=== PATIENT | male | born 1965 | race Caucasian/White ===

== ENCOUNTER → 2016-11-14 | Outpatient (CLI) | payer OTHER ==
[~2016-11-14] MED LIST: ASPI81TA28 PO; BUPR-83 PO; ELQ25 PO; GADAVIST IV PRN; MTR/600 PO; RIVA1TAB4 PO
--- NOTE | 2016-11-14 13:16 | DIAGNOSTIC IMAGING REPORT ---
MRI OF THE BRAIN WITHOUT AND WITH IV CONTRAST CLINICAL HISTORY: Severe persistent headaches. Left auricular pain COMPARISON STUDY: Head CT dated 08/19/2016 TECHNIQUE: MRI of the brain was performed from the vertex to the skull base utilizing various T1 and T2 weighted sequences. Following the IV administration of 8 mL of Gadavist contrast, additional enhanced images were obtained. FINDINGS: Sagittal T1, axial diffusion, proton density and T2 weighted axial, coronal FLAIR, and pre and post axial T1-weighted images were acquired. These were supplemented with post gadolinium coronal T1 weighted images. No intra or extra-axial mass lesions are visualized. Axial diffusion-weighted images reveal no evidence of acute or subacute infarction. There is no evidence of ventricular dilatation. Proton density T2-weighted and FLAIR images reveal no significant intraparenchymal signal abnormalities. There are no abnormal flow voids. There is a small right frontoparietal developmental venous anomaly IMPRESSION: 1. No acute intracranial findings 2. No evidence of intracranial mass 3. No evidence of acute or subacute infarction 4. Small right frontoparietal developmental venous anomaly Electronically signed by: Vincenzo Hernandez M.D. 11/14/2016 1:14 PM Dictated Date/Time: 11/14/2016 1:08 PM
== END | disposition home or self-care (01) ==
LOC: C.MRIBC 11:58
PROVIDERS: ATTEND Psychiatry & Neurology Neurology
DX: R51 Headache (principal); H92.02 Otalgia, left ear

== ENCOUNTER 2017-03-17 19:07 | Emergency (ER) | payer OTHER ==
[~2017-03-17] VITALS: Ht 177.8 cm; Wt 78.6 kg
[~2017-03-17 19:07] MED LIST changes: -BUPR-83 PO; -ELQ25 PO; -GADAVIST IV PRN; -MTR/600 PO; -RIVA1TAB4 PO
[2017-03-17 19:14] VITALS: TEMP 36.5; Ht 177.8 cm; Wt 78.6 kg
[2017-03-17] MEDS ORDERED: ELQ25 PO (19:23)
[2017-03-17 20:08] LABS: BASO % 0.9 %; BASO ABS # 0.05 K/uL (0-0.2); COMPLETE YES; HEMATOCRIT 42.2 % (42-52); IG% 0.2 %; LYMPH % 32.6 %; LYMPH ABS # 1.78 K/uL (1.2-3.4); MEAN CORPUSCULAR HEMOGLOBIN 34.7 pg (25-34); MEAN CORPUSCULAR HGB CONC 34.4 g/dl (32-36); MEAN PLATELET VOLUME 9.2 fL (7.4-10.4); MONO % 8.6 %; NEUT % 55.7 %; PLATELET COUNT 206 K/uL (130-400); RED BLOOD COUNT 4.18 M/uL (4.7-6.1); WHITE BLOOD COUNT 5.46 K/uL (4.8-10.8)
[2017-03-17] MEDS ORDERED: MTR/600 PO (20:12)
[2017-03-17 20:28] LABS: BUN/CREATININE RATIO 6.4 (10-20); CALCIUM 8.1 mg/dl (8.5-10.1); CREATININE 0.73 mg/dl (0.60-1.40); POTASSIUM 3.8 mmol/L (3.5-5.1)
[2017-03-17 20:29] LABS: BENZODIAZEPINE, URINE POS (NEG); COCAINE,URINE NEG (NEG); PHENCYCLIDINE, URINE NEG (NEG)
[2017-03-17 20:30] LABS: ALB/GLOB RATIO 1.2 (0.9-2)
--- NOTE | 2017-03-17 20:42 | DIAGNOSTIC IMAGING REPORT ---
CHEST 2 VIEWS ROUTINE CLINICAL HISTORY: cough, congestion ATYPICAL CHEST PAIN COMPARISON STUDY: 03/21/2016 FINDINGS: The cardiac and mediastinal contours are normal. There is no evidence of focal pulmonary consolidation. There is no evidence of failure. No pleural effusions are visualized.[ IMPRESSION: No active disease in the chest. Electronically signed by: Vincenzo Hernandez M.D. 03/17/2017 8:40 PM Dictated Date/Time: 03/17/2017 8:40 PM
--- NOTE | 2017-03-17 22:30 | EMERGENCY ROOM VISIT NOTE ---
History First contact with patient: 19:17 Chief Complaint: ILLNESS Stated Complaint: THROAT,CHEST PAIN,COUGH History of Present Illness The patient is a 52 year old male who presents to the Emergency Room with complaints of cough and congestion for the past 2 weeks. The patient states that he has had nasal congestion, sore throat and cough on and off for the past 2 weeks. The patient took leftover penicillin at home. The patient does report that he has several beers daily. He reports he has detoxed himself off of Suboxone, but replaced that with alcohol. He is thinking about quitting. He did see his family doctor regarding these issues. He states he has a prescription for Librium that he occasionally takes at home. The patient denies chest pain, abdominal pain, fever, nausea or vomiting. Review of Systems A complete 10 point review of systems was reviewed with the patient with pertinent positives and negatives as per history of present illness. All else were negative. Past Medical/Surgical History Medical Problems: (1) ANXIETY STATE NOS (2) BIPOLAR DISORDER, UNSPECIFIED (3) DVT (deep venous thrombosis) (4) OPIOID DEPENDENCE-UNSPEC (5) Pancreatitis (6) Pulmonary embolism Social History Smoking Status: Never Smoker Alcohol Use: occasionally Drug Use: none Marital Status: Housing Status: lives with family Occupation Status: employed Current/Historical Medications Scheduled Apixaban (Eliquis), 2.5 MG PO BID Scheduled PRN Ibuprofen (Ibuprofen), 600 MG PO Q6 PRN for Pain Allergies Coded Allergies: No Known Allergies (Verified , 03/17/17) Physical Exam Vital Signs Date Time Temp Pulse Resp B/P (MAP) Pulse Ox O2 Delivery O2 Flow Rate FiO2 03/17/17 22:42 61 18 145/82 96 03/17/17 21:35 61 18 152/80 96 Room Air 03/17/17 19:14 36.5 75 18 122/75 95 Room Air Physical Exam VITALS: Vitals are noted on the nurse's note and reviewed by myself. Vital signs stable. GENERAL: This is a 52-year-old female, in no acute distress, breath smells of EtOH, nondiaphoretic, well-developed well-nourished. SKIN: The skin was without rashes. EARS: External auditory canals clear, there is scarring of bilateral tympanic membranes with no erythema or effusion. EYES: Pupils equal round and reactive to light and accommodation. Conjunctivae without injection, sclerae without icterus. NOSE: Patent, turbinates without inflammation or discharge. No sinus tenderness. MOUTH: Mucous membranes moist. Tonsils are not enlarged. Pharynx without erythema or exudate. NECK: Supple without nuchal rigidity. No lymphadenopathy. HEART: Regular rate and rhythm without murmurs gallops or rubs. LUNGS: Clear to auscultation bilaterally without wheezes, rales or rhonchi. NEURO: Patient was alert and oriented to person place and time. Medical Decision & Procedures ER Provider Diagnostic Interpretation: CHEST 2 VIEWS ROUTINE CLINICAL HISTORY: cough, congestion ATYPICAL CHEST PAIN COMPARISON STUDY: 03/21/2016 FINDINGS: The cardiac and mediastinal contours are normal. There is no evidence of focal pulmonary consolidation. There is no evidence of failure. No pleural effusions are visualized.[ IMPRESSION: No active disease in the chest. Laboratory Results 03/17/17 20:00 Red Blood Count 4.18, Mean Corpuscular Volume 101.0, Mean Corpuscular Hemoglobin 34.7, Mean Corpuscular Hemoglobin Concent 34.4, Mean Platelet Volume 9.2, Neutrophils (%) (Auto) 55.7, Lymphocytes (%) (Auto) 32.6, Monocytes (%) ( Auto) 8.6, Eosinophils (%) (Auto) 2.0, Basophils (%) (Auto) 0.9, Neutrophils # ( Auto) 3.04, Lymphocytes # (Auto) 1.78, Monocytes # (Auto) 0.47, Eosinophils # ( Auto) 0.11, Basophils # (Auto) 0.05 03/17/17 20:00 Test 03/17/17 19:55 03/17/17 20:00 Urine Opiates Screen NEG (NEG) Urine Methadone, Qualitative NEG (NEG) Urine Barbiturates NEG (NEG) Urine Phencyclidine (PCP) Level NEG (NEG) Ur Amphetamine/Methamphetamine NEG (NEG) MDMA (Ecstasy) Screen NEG (NEG) Urine Benzodiazepines Screen POS (NEG) Urine Cocaine Metabolite NEG (NEG) Urine Marijuana (THC) POS (NEG) White Blood Count 5.46 K/uL (4.8-10.8) Red Blood Count 4.18 M/uL (4.7-6.1) Hemoglobin 14.5 g/dL (14.0-18.0) Hematocrit 42.2 % (42-52) Mean Corpuscular Volume 101.0 fL (80-100) Mean Corpuscular Hemoglobin 34.7 pg (25-34) Mean Corpuscular Hemoglobin Concent 34.4 g/dl (32-36) Platelet Count 206 K/uL (130-400) Mean Platelet Volume 9.2 fL (7.4-10.4) Neutrophils (%) (Auto) 55.7 % Lymphocytes (%) (Auto) 32.6 % Monocytes (%) (Auto) 8.6 % Eosinophils (%) (Auto) 2.0 % Basophils (%) (Auto) 0.9 % Neutrophils # (Auto) 3.04 K/uL (1.4-6.5) Lymphocytes # (Auto) 1.78 K/uL (1.2-3.4) Monocytes # (Auto) 0.47 K/uL (0.11-0.59) Eosinophils # (Auto) 0.11 K/uL (0-0.5) Basophils # (Auto) 0.05 K/uL (0-0.2) RDW Standard Deviation 47.6 fL (36.4-46.3) RDW Coefficient of Variation 12.9 % (11.5-14.5) Immature Granulocyte % (Auto) 0.2 % Immature Granulocyte # (Auto) 0.01 K/uL (0.00-0.02) Anion Gap 11.0 mmol/L (3-11) Est Creatinine Clear Calc Drug Dose 119.4 ml/min Estimated GFR () 121.9 Estimated GFR (Non- 105.2 BUN/Creatinine Ratio 6.4 (10-20) Calcium Level 8.1 mg/dl (8.5-10.1) Total Bilirubin 0.3 mg/dl (0.2-1) Aspartate Amino Transf (AST/SGOT) 100 U/L (15-37) Alanine Aminotransferase (ALT/SGPT) 104 U/L (12-78) Alkaline Phosphatase 63 U/L (45-117) Total Protein 6.4 gm/dl (6.4-8.2) Albumin 3.5 gm/dl (3.4-5.0) Globulin 2.9 gm/dl (2.5-4.0) Albumin/Globulin Ratio 1.2 (0.9-2) Ethyl Alcohol mg/dL 52.0 mg/dl (0-3) Medical Decision Differential diagnosis includes pneumonia, upper respiratory infection, allergies, COPD, asthma, among others. The patient is a 52-year-old male who presents today complaining of cough and nasal congestion. Labs revealed no leukocytosis, anemia or concerning electrolyte abnormalities. LFTs are mildly elevated consistent with the patient 's alcohol use. Tox screen was positive for benzodiazepines and marijuana. Alcohol was found to be 52. The patient may have an upper respiratory infection or seasonal allergies. He did request information regarding rehabilitation. The case supervisor did speak with the patient prior to discharge. He was encouraged to follow-up closely with his primary care provider. Based on the patient's presentation and work up, I feel the patient is stable for outpatient treatment. The patient was educated to return to the emergency department for any worsening of their current condition or new/concerning symptoms. He will follow up with his PCP. Medication reconciliation: I attest that I have personally reviewed the patient 's current medication list. Blood pressure screening: Patient was found to have an elevated blood pressure and was referred to their primary care provider for recheck and further treatment. Impression Primary Impression: Upper respiratory infection Departure Information Dispostion Home / Self-Care Condition GOOD Referrals Gerber Raman PA-C (PCP) Patient Instructions My [facility] Additional Instructions Sudafed at home as needed for symptoms. For pain control, you can use the following [id number] medicines (if >12 yo): - Regular strength (325mg/tab) Tylenol (acetaminophen) 2 tabs every 4-6 hours as needed. Do not exceed 12 tablets in a 24 hour period. Avoid taking more than 4 grams (4000 mg) of Tylenol per day. This includes any other sources of acetaminophen you may take on a regular basis. - Regular strength (200 mg/tab) Advil (ibuprofen) 1-2 tabs every 4-6 hours as needed. Do not exceed a dose of 3200 mg per day. Follow-up with your primary care provider this week for further evaluation.
[2017-03-17 22:42] VITALS: BP 145/82; PULSE 61; O2SAT 96
[2017-03-21 08:04] LABS: HYDROXYETHYLFLURAZEPAM CONF NEGATIVE NG/ML (CUTOFF=50); HYDROXYMIDAZOLAM NEGATIVE NG/ML (CUTOFF=50); HYDROXYTRIAZOLAM CONF NEGATIVE NG/ML (CUTOFF=50); TEMAZEPAM CONF NEGATIVE NG/ML (CUTOFF=50)
[2017-04-08] MEDS ORDERED: RIVA1TAB4 PO (08:11)
== END 2017-03-17 22:43 | disposition home or self-care (01) ==
LOC: C.EDB 19:08 → C.EDC 22:43
DX: J06.9 Acute upper respiratory infection, unspecified (principal); F41.9 Anxiety disorder, unspecified; F31.9 Bipolar disorder, unspecified; Z86.718 Personal history of other venous thrombosis and embolism; F11.20 Opioid dependence, uncomplicated; Z86.711 Personal history of pulmonary embolism; Z79.01 Long term (current) use of anticoagulants

== ENCOUNTER → 2017-05-06 | Outpatient (CLI) | payer OTHER ==
[~2017-05-06] MED LIST changes: -ASPI81TA28 PO; +MTR/600 PO; +RIVA1TAB4 PO
[2017-05-06 10:57] LABS: HEMATOCRIT 45.3 % (42-52); MEAN CELL VOLUME 102.7 fL (80-100); MEAN CORPUSCULAR HEMOGLOBIN 36.3 pg (25-34); MEAN CORPUSCULAR HGB CONC 35.3 g/dl (32-36); MEAN PLATELET VOLUME 9.8 fL (7.4-10.4); PLATELET COUNT 201 K/uL (130-400); RED BLOOD COUNT 4.41 M/uL (4.7-6.1); WHITE BLOOD COUNT 6.05 K/uL (4.8-10.8)
[2017-05-06 11:06] LABS: INR 1.1 (0.9-1.1)
[2017-05-06 11:11] LABS: ALT/SGPT 115 U/L (12-78); AST/SGOT 84 U/L (15-37); BLOOD UREA NITROGEN 5 mg/dl (7-18); BUN/CREATININE RATIO 6.9 (10-20); CALCIUM 8.7 mg/dl (8.5-10.1); CARBON DIOXIDE 25 mmol/L (21-32); CHLORIDE 108 mmol/L (98-107); CREATININE 0.72 mg/dl (0.60-1.40); GLUCOSE 85 mg/dl (70-99); SODIUM 139 mmol/L (136-145)
[2017-05-06 11:14] LABS: ALB/GLOB RATIO 1.5 (0.9-2); ALKALINE PHOSPHATASE 66 U/L (45-117)
== END | disposition home or self-care (01) ==
LOC: C.LAB 10:04
PROVIDERS: ATTEND Physician Assistant
DX: Z51.81 Encounter for therapeutic drug level monitoring (principal); Z79.01 Long term (current) use of anticoagulants; Z86.718 Personal history of other venous thrombosis and embolism

== ENCOUNTER 2017-11-30 18:02 | Emergency (ER) | payer OTHER ==
[~2017-11-30] VITALS: Ht 177.8 cm; Wt 81.6 kg
[2017-11-30 18:12] VITALS: BP 120/76; PULSE 73; TEMP 36.6; O2SAT 96; Ht 177.8 cm; Wt 81.6 kg
[2017-12-01] MEDS ORDERED: GABA-113 PO (05:53)
[2017-12-01] MEDS ORDERED: NAPR1TAB9 PO (05:53)
== END 2017-11-30 20:11 | disposition left against medical advice (07) ==
LOC: C.EDB 18:03 → C.EDA 20:11
DX: M79.606 Pain in leg, unspecified (principal)

== ENCOUNTER 2017-12-01 05:21 | Emergency (ER) | payer OTHER ==
[~2017-12-01] VITALS: Ht 177.8 cm; Wt 78.2 kg
[2017-12-01 05:28] VITALS: TEMP 36.3; Ht 177.8 cm; Wt 78.2 kg
[2017-12-01] MEDS ORDERED: GABA-113 PO (05:53)
[2017-12-01] MEDS ORDERED: NAPR1TAB9 PO (05:53)
[2017-12-01 06:11] LABS: BASO % 0.6 %; BASO ABS # 0.03 K/uL (0-0.2); HEMATOCRIT 44.5 % (42-52); HEMOGLOBIN 15.9 g/dL (14.0-18.0); LYMPH % 30.2 %; LYMPH ABS # 1.53 K/uL (1.2-3.4); MEAN CELL VOLUME 106.2 fL (80-100); MEAN CORPUSCULAR HEMOGLOBIN 37.9 pg (25-34); MEAN CORPUSCULAR HGB CONC 35.7 g/dl (32-36); MEAN PLATELET VOLUME 9.5 fL (7.4-10.4); MONO % 10.5 %; MONO ABS # 0.53 K/uL (0.11-0.59); NEUT % 56.7 %; NEUT ABS # 2.87 K/uL (1.4-6.5); PLATELET COUNT 184 K/uL (130-400); RED CELL DISTRIBUTION WIDTH CV 12.8 % (11.5-14.5); RED CELL DISTRIBUTION WIDTH SD 49.6 fL (36.4-46.3); WHITE BLOOD COUNT 5.06 K/uL (4.8-10.8)
[2017-12-01 06:43] LABS: ALBUMIN 4.1 gm/dl (3.4-5.0); CALCIUM 8.5 mg/dl (8.5-10.1); CREATININE 0.77 mg/dl (0.60-1.40); POTASSIUM 3.9 mmol/L (3.5-5.1)
--- NOTE | 2017-12-01 06:44 | DIAGNOSTIC IMAGING REPORT ---
R VENOUS DOPP LOWER EXT UNILAT HISTORY: 52 years-old Male pain, hx PE acute right lower chest pain with history of DVT COMPARISON: None available TECHNIQUE: Multiple real-time sonographic images of the right lower extremity deep venous structures were obtained assessing grayscale appearance, color and spectral flow FINDINGS: There is normal flow, compression, phasicity and augmentation of the right lower extremity deep venous structures. IMPRESSION: No sonographic evidence of deep venous thrombosis. The above report was generated using voice recognition software. It may contain grammatical, syntax or spelling errors. Electronically signed by: Rosales Hanson M.D. 12/01/2017 6:42 AM Dictated Date/Time: 12/01/2017 6:42 AM
--- NOTE | 2017-12-01 06:44 | DIAGNOSTIC IMAGING REPORT ---
R VENOUS DOPPLER UPR EXT UNIL HISTORY: 52 years-old Male pain, hx PE acute right upper extremity pain with history of DVT COMPARISON: None available TECHNIQUE: Multiple real-time sonographic images of the deep venous structures involving the right upper extremity were obtained assessing grayscale appearance, color and spectral flow FINDINGS: There is normal flow, compressibility and phasicity of the right upper extremity deep venous structures. IMPRESSION: No sonographic evidence of deep venous thrombosis. The above report was generated using voice recognition software. It may contain grammatical, syntax or spelling errors. Electronically signed by: Rosales Hanson M.D. 12/01/2017 6:43 AM Dictated Date/Time: 12/01/2017 6:42 AM
[2017-12-01 06:54] LABS: TOTAL PROTEIN 7.1 gm/dl (6.4-8.2)
[2017-12-01 07:07] VITALS: BP 141/78; PULSE 58; O2SAT 98
--- NOTE | 2017-12-02 00:37 | EMERGENCY ROOM VISIT NOTE ---
History First contact with patient: 05:34 Chief Complaint: FOOT PAIN Stated Complaint: CONSTANT PAIN IN RT FOOT/LEG/ARM,HX BLOOD CLOTS History of Present Illness The patient is a 52 year old male who presents to the Emergency Room with complaints of right bicep and calf pain for the past few weeks who is concerned he might have a blood clot. He has a history of PE. He is on Eliquis and states he has not missed any doses. Patient also complains of ongoing fatigue. He has a history of tick bites. Patient denies chest pain, dyspnea, fever, chills, cough, congestion, abdominal pain, leg swelling, arm swelling, recent travel. He does smoke. Review of Systems An 10 system review of systems was completed with positives and pertinent negatives listed in the HPI. Past Medical/Surgical History Medical Problems: (1) ANXIETY STATE NOS (2) BIPOLAR DISORDER, UNSPECIFIED (3) DVT (deep venous thrombosis) (4) OPIOID DEPENDENCE-UNSPEC (5) Pancreatitis (6) Pulmonary embolism Family History Cancer Social History Smoking Status: Current Some Day Smoker Alcohol Use: occasionally Drug Use: none Marital Status: Housing Status: lives with family Occupation Status: employed Current/Historical Medications Scheduled Gabapentin (Neurontin), 600 MG PO HS Rivaroxaban (Xarelto), 20 MG PO DAILY Scheduled PRN Naproxen (Aleve), 220-440 MG PO DIRECTED PRN for Pain Physical Exam Vital Signs Date Time Temp Pulse Resp B/P (MAP) Pulse Ox O2 Delivery O2 Flow Rate FiO2 12/01/17 07:07 58 16 141/78 98 12/01/17 05:28 36.3 67 18 136/90 95 Room Air Physical Exam VITALS: Vitals are noted on the nurse's note and reviewed by myself. Vital signs stable. GENERAL: White male with tobacco odor, in no acute distress, nondiaphoretic, well-developed well-nourished. SKIN: The skin was without rashes, erythema, edema, or bruising. There is no tenting of the skin. Capillary reflex less than 2 seconds. HEAD: Normocephalic atraumatic. EARS: External auditory canals clear EYES: Pupils equal round and reactive to light and accommodation. Conjunctivae without injection, sclerae without icterus. Extraocular movements intact. NOSE: Patent, turbinates without inflammation or discharge. MOUTH: Mucous membranes moist. Pharynx without erythema or exudate. Uvula midline. Airway patent. Tongue does not deviate. NECK: Supple without nuchal rigidity. No lymphadenopathy. No thyromegaly. Cervical spine is nontender. No JVD. HEART: Regular rate and rhythm without murmurs gallops or rubs. LUNGS: Clear to auscultation bilaterally without wheezes, rales or rhonchi. No dullness to percussion. No retractions or accessory muscle use. ABDOMEN: Positive bowel sounds x 4. Normal tympanic percussion. Soft, nontender, without masses or organomegaly. Garcia sign negative. No guarding or rebound tenderness. MUSCULOSKELETAL: No muscle atrophy, erythema, or edema noted. Full range of motion without joint tenderness in all extremities. No tenderness to palpation. Normal gait. Strength 5/5 throughout. NEURO: Patient was alert and oriented to person place and time. Normal sensation to light and sharp touch. No focal neurological deficits. Medical Decision & Procedures Laboratory Results 12/01/17 05:55 Red Blood Count 4.19, Mean Corpuscular Volume 106.2, Mean Corpuscular Hemoglobin 37.9, Mean Corpuscular Hemoglobin Concent 35.7, Mean Platelet Volume 9.5, Neutrophils (%) (Auto) 56.7, Lymphocytes (%) (Auto) 30.2, Monocytes (%) ( Auto) 10.5, Eosinophils (%) (Auto) 2.0, Basophils (%) (Auto) 0.6, Neutrophils # (Auto) 2.87, Lymphocytes # (Auto) 1.53, Monocytes # (Auto) 0.53, Eosinophils # ( Auto) 0.10, Basophils # (Auto) 0.03 12/01/17 05:55 Test 12/01/17 05:55 White Blood Count 5.06 K/uL (4.8-10.8) Red Blood Count 4.19 M/uL (4.7-6.1) Hemoglobin 15.9 g/dL (14.0-18.0) Hematocrit 44.5 % (42-52) Mean Corpuscular Volume 106.2 fL (80-100) Mean Corpuscular Hemoglobin 37.9 pg (25-34) Mean Corpuscular Hemoglobin Concent 35.7 g/dl (32-36) Platelet Count 184 K/uL (130-400) Mean Platelet Volume 9.5 fL (7.4-10.4) Neutrophils (%) (Auto) 56.7 % Lymphocytes (%) (Auto) 30.2 % Monocytes (%) (Auto) 10.5 % Eosinophils (%) (Auto) 2.0 % Basophils (%) (Auto) 0.6 % Neutrophils # (Auto) 2.87 K/uL (1.4-6.5) Lymphocytes # (Auto) 1.53 K/uL (1.2-3.4) Monocytes # (Auto) 0.53 K/uL (0.11-0.59) Eosinophils # (Auto) 0.10 K/uL (0-0.5) Basophils # (Auto) 0.03 K/uL (0-0.2) RDW Standard Deviation 49.6 fL (36.4-46.3) RDW Coefficient of Variation 12.8 % (11.5-14.5) Immature Granulocyte % (Auto) 0.0 % Immature Granulocyte # (Auto) 0.00 K/uL (0.00-0.02) Anion Gap 9.0 mmol/L (3-11) Est Creatinine Clear Calc Drug Dose 113.2 ml/min Estimated GFR () 119.2 Estimated GFR (Non- 102.9 BUN/Creatinine Ratio 8.0 (10-20) Calcium Level 8.5 mg/dl (8.5-10.1) Total Bilirubin 0.8 mg/dl (0.2-1) Direct Bilirubin 0.2 mg/dl (0-0.2) Aspartate Amino Transf (AST/SGOT) 51 U/L (15-37) Alanine Aminotransferase (ALT/SGPT) 54 U/L (12-78) Alkaline Phosphatase 65 U/L (45-117) Total Protein 7.1 gm/dl (6.4-8.2) Albumin 4.1 gm/dl (3.4-5.0) Thyroid Stimulating Hormone (TSH) 0.905 uIu/ml (0.300-4.500) Lyme Disease IgG Antibody NEG (NEG) Lyme Disease IgM Antibody NEG (NEG) ED Course Prior records/ancillary studies reviewed and summarized above. Nursing notes reviewed. The patient's history was concerning for fatigue and leg and arm pain Differential diagnosis: Etiologies such as Lyme's disease, DVT, metabolic, infection, hypo/hyperglycemia , electrolyte abnormalities, toxicologic, neurologic, as well as others were entertained. Physical examination: As above. ER treatment provided: IV Lock On reassessment the patient felt better. Diagnostics interpretation by me: The labs revealed stable H&H. No leukocytosis euthyroid Negative Lyme's test Imaging studies: Ultrasounds negative for DVT per radiology and review Exam and history seem consistent with muscle skeletal discomfort and fatigue with unclear etiology. Patient was neurovascularly and neurologically intact. No signs of DVT. He is well-appearing. He is tolerating fluids. He was advised to follow-up family care for his ongoing symptoms are here in the ER sooner for chest pain, difficulty breathing, worsening sinus symptoms or as needed. He ambulated out of the ER without difficulties. By the evaluation outlined above emergent etiologies such as infection, electrolyte abnormalities , cardiac sources, intracerebral event, toxologic, neurologic, abnormalities blood glucose, metabolic, as well as others were deemed relatively unlikely. The pt informed about the findings as listed above. All questions were answered and pleased with the treatment. Return instructions were outlined and the patient was discharged in stable condition. Outpatient prescription management: [] Referral: The patient was referred back to primary care physician for follow-up in 2 to 3 days for a recheck of the current condition. Case reviewed with my attending The chart was completed utilizing [employer] Speech voice recognition software. Grammatical errors, random word insertions, pronoun errors, and incomplete sentences are an occassional consequence of this system due to software limitations, ambient noise, and hardware issues. Any formal questions or concerns about the content, text, or information contained within the body of this dictation should be directly addressed to the physician assistant store manager for clarification. Medical Decision as above Medication Reconcilliation Current Medication List: was personally reviewed by me Blood Pressure Screening Patient's blood pressure: Normal blood pressure Impression Primary Impression: Body aches Additional Impression: Fatigue Departure Information Dispostion Home / Self-Care Condition GOOD Referrals Gerber Raman PA-C (PCP) Patient Instructions My [facility] Additional Instructions Acetaminophen(Tylenol) may be used for fever or pain. Use 1000mg every six hours as needed. Avoid using more than 3000mg in a 24 hour period. Rest and drink plenty of fluids as tolerated. Continue current medications. Avoid strenuous activities and anything that worsens your pain. Resume normal activities once your symptoms resolve. Return to the ER immediately for worsening or persistent pain, abdominal pain , vomiting, fevers, chest pains, difficulty breathing, worsening of your condition, or as needed. Follow up with your primary physician in 2-3 days for a recheck of your current condition. Problem Qualifiers
== END 2017-12-01 07:08 | disposition home or self-care (01) ==
LOC: C.EDB 05:24 → C.EDA 07:08
DX: R52 Pain, unspecified (principal); R53.83 Other fatigue; Z86.711 Personal history of pulmonary embolism; F41.9 Anxiety disorder, unspecified; F31.9 Bipolar disorder, unspecified; Z86.718 Personal history of other venous thrombosis and embolism; K85.90 Acute pancreatitis without necrosis or infection, unspecified; Z80.9 Family history of malignant neoplasm, unspecified; F17.210 Nicotine dependence, cigarettes, uncomplicated; Z79.01 Long term (current) use of anticoagulants; Z79.899 Other long term (current) drug therapy

== ENCOUNTER → 2017-12-21 | Outpatient (CLI) | payer OTHER ==
[~2017-12-21] MED LIST changes: +GABA-113 PO; -MTR/600 PO; +NAPR1TAB9 PO
[2017-12-21 09:34] LABS: HEMATOCRIT 46.7 % (42-52); HEMOGLOBIN 16.6 g/dL (14.0-18.0); MEAN CELL VOLUME 107.4 fL (80-100); MEAN CORPUSCULAR HEMOGLOBIN 38.2 pg (25-34); MEAN CORPUSCULAR HGB CONC 35.5 g/dl (32-36); MEAN PLATELET VOLUME 10.3 fL (7.4-10.4); PLATELET COUNT 157 K/uL (130-400); RED CELL DISTRIBUTION WIDTH CV 12.8 % (11.5-14.5); RED CELL DISTRIBUTION WIDTH SD 50.8 fL (36.4-46.3); WHITE BLOOD COUNT 5.06 K/uL (4.8-10.8)
[2017-12-21 09:52] LABS: ALT/SGPT 81 U/L (12-78); BLOOD UREA NITROGEN 6 mg/dl (7-18); CALCIUM 8.9 mg/dl (8.5-10.1); CARBON DIOXIDE 25 mmol/L (21-32); CHOLESTEROL 192 mg/dl (0-200); CREATININE 0.78 mg/dl (0.60-1.40); GLUCOSE 94 mg/dl (70-99); LIPASE 829 U/L (73-393); SODIUM 137 mmol/L (136-145)
[2017-12-21 09:58] LABS: ALKALINE PHOSPHATASE 66 U/L (45-117); AST/SGOT 60 U/L (15-37); LDL CHOLESTEROL CALCULATED 96 mg/dl; TOTAL PROTEIN 7.1 gm/dl (6.4-8.2)
[2017-12-21 10:34] LABS: HEP C IGG 13 YRS+OLDER_RFLX PRELIM POS (NEG)
[2017-12-22 02:32] LABS: HEPATITIS A IGM TC 51813E NON-REACTIVE (NON-REACTIVE); HEPATITIS B CORE IGM TC51854R NON-REACTIVE (NON-REACTIVE)
[2017-12-23 09:37] LABS: HEPATITIS C RNA TMA QUAL Not detected
== END | disposition home or self-care (01) ==
LOC: C.LAB 07:55
PROVIDERS: ATTEND Physician Assistant
DX: R53.82 Chronic fatigue, unspecified (principal); F10.288 Alcohol dependence with other alcohol-induced disorder; Z13.220 Encounter for screening for lipoid disorders; Z12.5 Encounter for screening for malignant neoplasm of prostate

== ENCOUNTER → 2017-12-30 | Outpatient (CLI) | payer OTHER ==
[2017-12-30 15:47] LABS: BASO % 0.7 %; BASO ABS # 0.04 K/uL (0-0.2); EOS ABS # 0.11 K/uL (0-0.5); HEMATOCRIT 43.2 % (42-52); HEMOGLOBIN 15.7 g/dL (14.0-18.0); IG# 0.01 K/uL (0.00-0.02); LYMPH % 32.8 %; LYMPH ABS # 1.84 K/uL (1.2-3.4); MEAN CELL VOLUME 106.1 fL (80-100); MEAN CORPUSCULAR HEMOGLOBIN 38.6 pg (25-34); MEAN CORPUSCULAR HGB CONC 36.3 g/dl (32-36); MEAN PLATELET VOLUME 10.1 fL (7.4-10.4); MONO % 8.2 %; MONO ABS # 0.46 K/uL (0.11-0.59); NEUT % 56.1 %; NEUT ABS # 3.15 K/uL (1.4-6.5); PLATELET COUNT 188 K/uL (130-400); RED CELL DISTRIBUTION WIDTH CV 12.6 % (11.5-14.5); RED CELL DISTRIBUTION WIDTH SD 48.9 fL (36.4-46.3); WHITE BLOOD COUNT 5.61 K/uL (4.8-10.8)
[2017-12-30 16:25] LABS: HEMOGLOBIN A1C 5.4 % (4.5-5.6)
[2017-12-30 16:56] LABS: ALBUMIN 4.1 gm/dl (3.4-5.0); ALT/SGPT 57 U/L (12-78); AST/SGOT 39 U/L (15-37); BLOOD UREA NITROGEN 5 mg/dl (7-18); CALCIUM 8.4 mg/dl (8.5-10.1); CARBON DIOXIDE 22 mmol/L (21-32); GLUCOSE 85 mg/dl (70-99); POTASSIUM 3.8 mmol/L (3.5-5.1); SODIUM 136 mmol/L (136-145); URIC ACID 3.6 mg/dl (2.6-7.2)
[2017-12-30 17:07] LABS: ALKALINE PHOSPHATASE 62 U/L (45-117); TOTAL PROTEIN 7.1 gm/dl (6.4-8.2)
[2018-01-05 22:15] LABS: ANA SCREEN TC 249X NEGATIVE (NEGATIVE); ANTI-SS-A <1.0 NEG AI (<1.0 NEG); ANTI-SS-B <1.0 NEG AI (<1.0 NEG); ANTICARDIOLIPID AB IGA <11 APL (< = 11); COMPLEMENT C3 TC 44859W 98 MG/DL (90-180); COMPLEMENT C4 TC 44982E 18 MG/DL (16-47); HEPATITIS C VIRAL RNA BY PCR <15 NOT DETECTED IU/ML (<15); HEPATITIS C VIRAL RNA(LOG) PCR <1.18 NOT DETECTED LOG IU/ML (<1.18); MICROSOMAL AB 2 IU/ML (<9)
== END | disposition home or self-care (01) ==
LOC: C.LAB1850 14:00
PROVIDERS: ATTEND Internal Medicine Infectious Disease
DX: B18.2 Chronic viral hepatitis C (principal)